=== PATIENT | female | born 1985 | race Caucasian/White ===

== ENCOUNTER 2018-05-07 03:00 | Inpatient (IN) | payer OTHER ==
[2018-05-07] VITALS (12 sets, daily range): BP systolic 101–133; BP diastolic 50–82; PULSE 49–68; TEMP 97.7–98.8
[~2018-05-07] VITALS: Ht 160 cm; Wt 65.0 kg
[2018-05-07] MEDS ORDERED: PEPCID 20MG TAB20 MG PO (03:43)
[2018-05-07] MEDS ORDERED: PRENATAL (03:43)
[2018-05-07 04:01] LABS: BASO % 0.2 % (0.0-2.0); EOS % 0.3 % (0-4.0); GRAN # 7.4 (1.4-6.5); GRAN % 69.4 % (42.2-75.2); HEMOGLOBIN 11.1 g/dl (12.5-16.0); LYMPH # 2.5 (1.2-3.4); LYMPH % 23.4 % (20.0-51.0); MEAN CELL VOLUME 80 fl (80.0-100.0); MEAN CORPUSCULAR HEMOGLOBIN 26 pg (27.0-31.0); MEAN CORPUSCULAR HGB CONC 33 g/dl (33.0-37.0); MEAN PLATELET VOLUME 10.6 fl (7.4-10.4); MONO # 0.7 (0.1-0.6); MONO % 6.3 % (1.7-9.3); PLATELET COUNT 186 K/mm3 (130-400); RED BLOOD COUNT 4.25 M/mm3 (4.10-5.30); REDCELL DISTRIBUTION WIDTH-CV 12.5 % (11.5-14.5)
[2018-05-07 04:03] LABS: HEMATOCRIT 34.1 % (37.0-47.0)
[2018-05-08 00:30] VITALS: BP 118/68; PULSE 78; TEMP 98
[2018-05-08 04:45] VITALS: BP 117/77; PULSE 83; TEMP 97.9
[2018-05-08 08:30] VITALS: BP 106/63; PULSE 65; TEMP 98.2
[2018-05-08] MEDS ORDERED: MOTRIN 800800 MG/TAB PO (09:42)
[2018-05-08] MEDS ORDERED: PERCOCET 325 MG1 TA2 PO (09:43)
== END 2018-05-08 12:00 | disposition home or self-care (01) | DRG 807 ==
LOC: LDRO 03:00 → LDR 03:22 → OB 06:55
PROVIDERS: Obstetrics & Gynecology
PROC: 10E0XZZ Delivery of Products of Conception, External Approach (ICD-10-PCS; principal; 2018-05-07)
DX: O26.893 Other specified pregnancy related conditions, third trimester (principal); Z37.0 Single live birth; Z3A.38 38 weeks gestation of pregnancy; Z67.11 Type A blood, Rh negative
CPT/HCPCS: J2590; J7120

== ENCOUNTER → 2022-02-26 | Outpatient (CLI) | payer OTHER ==
[~2022-02-26] MED LIST: MOTRIN 800800 MG/TAB PO; PEPCID 20MG TAB20 MG PO; PERCOCET 325 MG1 TA2 PO; PRENATAL
== END ==
LOC: MC.RAD 08:57
DX: N63.20 Unspecified lump in the left breast, unspecified quadrant (principal)